=== PATIENT | female | born 1985 | race Caucasian/White ===

== ENCOUNTER → 2017-12-20 14:51 | Outpatient (CLI) | payer OTHER, SELFPAY ==
[2017-11-17 09:52] VITALS: BP 120/75
[2017-12-17 15:35] VITALS: BP 113/71; BMI 22.9
--- NOTE | 2017-12-20 14:55 | US_ITS ---
STUDY: SECOND AND THIRD TRIMESTER OBSTETRICAL ULTRASOUND REASON FOR EXAM: Female, 32 years old. Routine survey. LMP: August 09, 2017. TECHNIQUE: Transabdominal PRIOR ULTRASOUND: None. FINDINGS: There is a single intrauterine fetus. The fetus is in a breech presentation. There is demonstrated cardiac activity with a heart rate of 149 bpm. There is a normal amniotic fluid volume. The largest amniotic fluid pocket measures 4.74 cm. The placenta is posterior in location and is not low lying. The tip of the placenta is 1.3 cm from the cervix. There are Grade 0 placental changes. The cervix measures 5.2 cm in length. The adnexal regions are not visualized. BIOMETRY: BPD: 4.0 cm: 18 weeks, 2 days HC: 15.44 cm: 18 weeks, 3 days AC: 13.18 cm: 18 weeks, 5 days FL: 2.93 cm: 19 weeks, 1 days CI: 74% FL/BPD: 73% FL/HC: FL/AC: 22% HC/AC: 1.17 age by current US: 18 weeks, 5 days. SALVADOR by current US: May 18, 2018. Estimated weight: 257 grams, +/- 38 grams, 33 %. Age by LMP: 19 weeks, 0 days. SALVADOR by LMP: May 16, 2018. ANATOMY: Gender: Female Cranium: Normal lateral ventricles. Normal choroid plexus. Normal cerebellum. Normal cisterna magna. It measures 0.53 cm. Normal face, nose and lips. Chest: Normal 4-chamber heart. Abdomen/Pelvis: Normal diaphragm. Normal stomach. Normal abdominal wall. Normal cord insertion. Normal 3 vessel cord. Normal kidneys. Normal bladder. Spine: Normal cervical spine. Normal thoracic spine. Normal lumbar spine. Normal sacrum. Extremities: Normal bilateral upper extremities. Normal bilateral lower extremities. US/OB Anatomy Scan IMPRESSION: Single live intrauterine gestation with a mean gestational age of 18 weeks and 5 days. Electronically Signed: Norris Cavazos MD at 9:32 EST Tel [phone], Service support ,
== END ==
PROVIDERS: Visit Provider Nurse Practitioner Women's Health
DX: Z34.90 Encounter for supervision of normal pregnancy, unspecified, unspecified trimester (principal)
CPT/HCPCS: 76805

== ENCOUNTER → 2018-02-15 08:01 | Outpatient (CLI) | payer OTHER, SELFPAY ==
[2018-02-15 09:52] LABS: Absolute Lymphocyte Count 2.36 X10^3/ul (0.83-4.51); Absolute Neutrophil Count 8.1 X10^3/uL (2.0-7.7); Basophil# 0.02 X10^3/uL; Basophil% 0.2 % (0-1); Eosinophil# 0.09 X10^3/uL; Eosinophils% 0.8 % (0-5); Hematocrit 38.1 % (37-47); Hemoglobin 12.7 g/dl (12.0-15.0); Lymphocyte # 2.36 X10^3/ul (4.0); Lymphocyte % 20.8 % (19-41); Mean Corp Hgb Conc 33.3 g/gl (32-36); Mean Corpuscular Hgb 32.2 pg (27.0-32.0); Mean Corpuscular Volume 96.7 fL (81-99); Mean Platelet Vol. 10.2 fl (6.2-12.0); Monocyte# 0.68 X10^3/uL; Neutrophil # 8.13 X10^3/uL (2.7-7.7); Neutrophil % 71.8 % (47-70); Platelet Count 272 K/mm3 (150-450); RBC Distribution Width SD 44.9 fl (35.1-43.9); Red Blood Count 3.94 M/mm3 (4.2-5.4); White Blood Count 11.3 K/mm3 (4.4-11.0)
[2018-02-15 09:53] LABS: POSITIVE COUNT NO; POSITIVE DIFFERENTIAL NO; POSITIVE MORPHOLOGY NO
[2018-02-15 10:15] LABS: Glucose Challenge Gest 1H 50g 129 mg/dL (70-140)
== END ==
PROVIDERS: Visit Provider Obstetrics & Gynecology
DX: Z34.02 Encounter for supervision of normal first pregnancy, second trimester (principal)
CPT/HCPCS: 36415; 82950; 85025

== ENCOUNTER → 2018-02-21 14:58 | Outpatient (CLI) | payer OTHER, SELFPAY ==
--- NOTE | 2018-02-21 14:59 | US_ITS ---
STUDY: SECOND AND THIRD TRIMESTER OBSTETRICAL ULTRASOUND - LIMITED REASON FOR EXAM: Female, 32 years old. Follow-up low-lying placenta. LMP: 08/09/2017 PRIOR ULTRASOUND: 12/20/2017. TECHNIQUE: Transabdominal ultrasound evaluation was performed. FINDINGS: There is a single intrauterine fetus. The fetus is in a breech presentation. There is demonstrated cardiac activity with a heart rate of 149 bpm. There is a normal amniotic fluid volume. The largest amniotic fluid pocket measures 7.1 cm. The amniotic fluid index (DIETER) is 12.9 cm. The placenta is posterior in location and is not low lying. There are Grade 0 placental changes. The cervix measures 3.5 cm cm in length. BIOMETRY: BPD: 6.7: 27 weeks, 0 days HC: 26.3: 28 weeks, 5 days AC: 22.6: 27 weeks, 0 days FL: 5.3: 27 weeks, 6 days Age by LMP: 28 weeks, 0 days. SALVADOR by LMP: 05/16/2018. age by prior US: 27 weeks, 5 days. SALVADOR by prior US: 05/18/2018. age by current US: 27 weeks, 5 days. SALVADOR by current US: 05/18/2018. Estimated weight: 1071 grams, +/- 156 grams, 18 percentile. Gender: US/OB Limited With Biometrics IMPRESSION: Single live fetus in a breech presentation. survey not performed on this exam. Placenta is grade 0 and is not low-lying. Cervix is closed. age by prior US: 27 weeks, 5 days. SALVADOR by prior US: 05/18/2018. Estimated weight: 1071 grams, +/- 156 grams, 18 percentile. Electronically Signed: Lenny Wray MD at 23:16 EDT , Service support ,
== END ==
PROVIDERS: Visit Provider Nurse Practitioner Women's Health
DX: Z34.90 Encounter for supervision of normal pregnancy, unspecified, unspecified trimester (principal); O44.42 Low lying placenta NOS or without hemorrhage, second trimester; Z3A.00 Weeks of gestation of pregnancy not specified
CPT/HCPCS: 76816

== ENCOUNTER → 2018-04-19 16:00 | Outpatient (CLI) | payer OTHER, SELFPAY ==
--- NOTE | 2018-04-19 16:00 | DT_ITS ---
This patient was seen during an EMR downtime April 18, 2018 - April 25, 2018. This patient may have a combination of paper and electronic documentation or all paper documentation. All documentation is viewable within the e-chart portion of [employer] for each patient visit.
[2018-04-24 10:02] LABS: Group B Strep DNA By PCR Negative (Negative); Internal Control PASS; Probe Check PASS; Specimen Processing Control PASS
== END ==
PROVIDERS: Visit Provider Obstetrics & Gynecology
DX: Z34.90 Encounter for supervision of normal pregnancy, unspecified, unspecified trimester (principal)
CPT/HCPCS: 87081; 87653

== ENCOUNTER → 2018-05-23 10:28 | Outpatient (CLI) | payer OTHER, SELFPAY ==
--- NOTE | 2018-05-23 10:30 | US_ITS ---
STUDY: SECOND AND THIRD TRIMESTER OBSTETRICAL ULTRASOUND - LIMITED REASON FOR EXAM: Female, 32 years old. Follow-up anatomy. LMP: August 09, 2017. PRIOR ULTRASOUND: Comparison is made with prior study dated February 21, 2018. TECHNIQUE: Transabdominal ultrasound evaluation was performed. FINDINGS: There is a single intrauterine fetus. The fetus is in a cephalic presentation. There is demonstrated cardiac activity with a heart rate of 160 bpm. There is a normal amniotic fluid volume. The largest amniotic fluid pocket measures 3.5 sinus by 3.1 cm. The amniotic fluid index (DIETER) is 5.5 cm. The placenta is fundal in location. There are Grade 3 placental changes. The cervix is not well seen due to the head. BIOMETRY: BPD: 9.08 cm: 36 weeks, 6 days HC: 35.12 cm: 41 weeks, 0 days AC: 36.92 cm: 40 weeks, 6 days FL: 7.14 cm: 39 weeks, 5 days Age by LMP: 41 weeks, 0 days. SALVADOR by LMP: May 16, 2018. age by prior US: 40 weeks, 5 days. SALVADOR by prior US: May 18, 2018. age by current US: 39 weeks, 5 days. SALVADOR by current US: May 25, 2018. Estimated weight: 3963 grams, +/- 579 grams, percentile no growth percentile over 40 weeks gestation.. US/OB Limited With Biometrics IMPRESSION: Single live intrauterine gestation with a mean gestational age of 40 weeks and 5 days. The measurements obtained today fall within the normal expected range. Electronically Signed: Norris Cavazos MD at 14:06 EDT Tel [phone], Service support ,
== END ==
PROVIDERS: Visit Provider Obstetrics & Gynecology
DX: Z34.90 Encounter for supervision of normal pregnancy, unspecified, unspecified trimester (principal)
CPT/HCPCS: 76816

== ENCOUNTER 2018-05-24 19:00 | Inpatient (IN) | payer OTHER, SELFPAY ==
[2018-05-24 19:11] VITALS: BMI 27.2
[2018-05-24] MEDS: Lactated Ringers 1,000 ML 50 ML IV (19:50)
[2018-05-24 20:19] LABS: Hematocrit 40.5 % (37-47); Hemoglobin 13.9 g/dl (12.0-15.0); Mean Corp Hgb Conc 34.3 g/gl (32-36); Mean Corpuscular Hgb 32.3 pg (27.0-32.0); Mean Platelet Vol. 10.3 fl (6.2-12.0); Platelet Count 289 K/mm3 (150-450); RBC Distribution Width CV 13.4 % (11.6-14.6); RBC Distribution Width SD 44.5 fl (35.1-43.9); Red Blood Count 4.31 M/mm3 (4.2-5.4); White Blood Count 14.4 K/mm3 (4.4-11.0)
[2018-05-24] MEDS: miSOPROStol 25 MCG TABLET VAGINAL (20:20)
[2018-05-24 20:24] LABS: Scan Indicated on CBC? Y/N NO
--- NOTE | 2018-05-24 21:02 | HP.PCM_ITS ---
- Problem List (1) Post-dates Status: Acute (2) Supervision of normal Status: Acute Qualifiers: Comment: PRR SALVADOR: 05/16/18; girl spouse Virgen; History Date of Admission: 05/24/18 Final SALVADOR: 05/16/18 Gestational age: 41 Weeks and 1 Days History of this : This is a 32 year-old, at 41 weeks gestational age presents for IOL secondary to postdates. she has had an uncomplicated pregnacy with no issues. she denies any vaginal bleeding, lof, and admits good fm Allergies codeine Allergy (Mild, Verified 05/24/18 19:33) Unknown milk thistle (Silybum marianum) Allergy (Mild, Verified 05/24/18 19:33) Unknown Home Medications: Home Medications vitamin,calcium,vrcnaknh-buxw-absjv acid tablet 1 tab PO QDAY 11/17/17 Azelaic Acid [Finacea] 50 gm TP DAILY 05/24/18 Smoking Status: Never smoker Alcohol: None Number of Fetus(es): 1 Heart Tracin moderate variability reactive no decels cat I tracing TOCO Analysis: irregular History Past Pregnancies: Past Pregnancies Delivery Date Name GA/Weeks Outcome Route Weight Gender Labor Length Anesthesia Delivery Location Provider FOB Labs: Mom's Labs & Results 05/24/18 05/24/18 19:50 19:50 WBC 14.4 H RBC 4.31 Hgb 13.9 Hct 40.5 MCV 94.0 MCH 32.3 H MCHC 34.3 RDW 13.4 RDW Differential 44.5 H Plt Count 289 MPV 10.3 Blood Type Pending Antibody Screen Pending Course Did the patient receive Yes care? Labs RPR/VDRL/Syphilis Nonreactive Rubella status Immune HbSAg Negative Date Done: 12/03/17 Chlamydia Negative Gonorrhea Negative HIV/AIDS Non-Reactive Group B Strep: Negative Current Obstetrical History Gestational Diabetes No Incompetent Cervix No Infertility No IUGR No Macrosomia No Hypertension/Pre-eclampsia No Placenta Previa/Abruption No PTL/PROM No Uterine anomaly No Oligohydramnios No Polyhydramnios No Multiple gestation No Past Medical History Asthma No Diabetes No Hypertension No Heart disease No Mitral valve prolapse No Neurologic/Seizure disorder/ No Migraines Kidney disease No Liver disease No Varicosities No Clotting disorders/Hx of DVT No Thyroid Dysfunction No Other medical diseases No Psychiatric disorders No Major trauma No Abnormal PAP smear Yes: 2010 Sleep apnea No Mammogram in the last 2 years No Social History Marital Status: Alleged father virgen Hx Smoking No Smoking Status Never smoker Expected Infant Delivery Method: Spontaneous Vaginal Review of Systems Constitutional: Denies: Fever, Malaise Eyes: Denies: Blurred vision, Vision Change HEENT: Denies: Head Aches, Visual Changes Cardiovascular: Denies: Chest Pain, Palpitations Respiratory: Denies: Cough, Shortness of Breath, Wheezing Gastrointestinal: Denies: Abdominal Pain, Diarrhea, Nausea, Vomiting Genitourinary: Denies: Dysuria, Hematuria Musculoskeletal: Denies: Joint Pain, Muscle pain Skin: Denies: Lesions, Rash Neurological: Denies: Blurred vision, Focal weakness, Headaches Psychiatric: Denies: Anxiety, Depression Endocrine: Denies: Heat/ Cold Intolerance Hematologic/ Lymphatic: Denies: Easy Bruising, Easy Bleeding Physical Exam General: Alert, Cooperative, No apparent distress HEENT: Atraumatic, Normocephalic. Negative for: Thyromegaly, Lymphadenopathy Cardiovascular: Regular rate Lungs: Normal air movement Abdomen: Soft, Non Tender, Gravid Neurological: Deep Tendon Reflexes 2+/4 and Symmetrical, Neuro grossly intact. Negative for: Clonus SUPERVISOR EDUCATION: Normal external genitalia. Negative for: Vulvar lesions Estimated gestational size: Appropriate for gestational size Presentation: Cephalic Assessment/Plan All Active Problems (Last Reviewed 05/23/18 @ 11:16 by Bonita Rasmussen) Post-dates (Acute) Supervision of normal (Acute) Low lying placenta, antepartum (Resolved) This is a 32 year-old, at 41 weeks gestational age IOL postdates cytotec then pitocin, epi PRN, gbs neg
[2018-05-25] MEDS: miSOPROStol 25 MCG TABLET VAGINAL ×2 (00:22→05:30)
[2018-05-25] MEDS: Acetaminophen 325 MG Tablet PO (04:51)
[2018-05-25] MEDS: 0.9% Saline Lock 10 ML Syringe IV ×2 (07:19→16:38)
--- NOTE | 2018-05-25 07:48 | PCM.PN.BLA ---
Progress Note s/p cytotec x 3. regular ctx. no cervical change yet. c ategory I tracing. continue cytotec until 3 cm
[2018-05-25] MEDS: fentaNYL-bupivacaine (epidural) 100 ML BAG EPIDURAL (15:13)
[2018-05-25] MEDS: Lactated Ringers 1,000 ML 50 ML IV ×2 (17:08→22:24)
--- NOTE | 2018-05-25 19:59 | PCM.PN.BLA ---
Progress Note doing well making progress to 6-7 cm. comfortable with epidural cat I tracing. pit at 10 cm
[2018-05-26] MEDS: Oxytocin 30 units/NS 500 ml 30 UNITS/500 ML IV.SOLN 334 UNITS IV (02:20)
--- NOTE | 2018-05-26 02:44 | PCM.OB.VAG ---
- Problem List (1) Post-dates Status: Acute (2) Supervision of normal Status: Acute Qualifiers: Comment: PRR SALVADOR: 05/16/18; girl spouse Gerry; (3) Late deceleration of heart rate Status: Acute (4) Variable heart rate decelerations, delivered Status: Acute Vaginal Delivery Maternal Presentation: Medically Indicated Induction 32-year-old at 41 and 1 presented for induction of labor secondary to postdates Method of Induction: Pitocin, Amniotomy, Cytotec Amniotic Membrane Rupture Type: Artificial Amniotic Fluid Description: Clear Final SALVADOR: 05/16/18 Gestational age: 41 Weeks and 3 Days Date of Procedure: 05/26/18 Surgery/ Procedure Performed: Vacuum Assisted Vaginal Delivery Type of Anesthesia: Epidural Description of Procedure: Patient pushed for over 2 hours and the had was at the +3 station and pelvis felt to be adequate patient developed recurrent late decelerations with pushing after having had variables and had minimal to moderate variability positive scalp stem, the decision was made to expedite the second stage of labor and therefore a vacuum was applied is difficult to maintain suction due to the capit. Medial lateral episiotomy was cut to shorten pushing. Vacuum was applied for a total of 5 minutes with pulls with 3 contractions with 3 pop offs and therefore the vacuum was abandoned. The head was at a +4-+5 station and the heart rate tracing showed moderate variability with resolution of late decelerations and therefore patient continued pushing. Pushed for an additional 15 minutes in the head was delivered atraumatically followed by the anterior and posterior shoulders with a loose nuchal cord ?1 easily reduced over the 's head. The was in the ABHIJIT presentation however the shoulders rotated and the right shoulder delivered first followed by the left which actually spontaneously rotated to anterior with pushing and the rest the infant delivered. Terminal meconium was noted and decreased tone therefore advanced manufacturing technician was called. Apgars were 7 and 8. Cord gases were sent and there is no extension of the right mediolateral episiotomy which was repaired in the usual fashion with 3-0 Vicryl repeat. It was to the level of a second-degree perineal laceration. EBL was 4 50 cc. Patient and tolerated the delivery well. Presentation: ABHIJIT Placental Delivery Description: Spontaneous Placenta Disposition: [facility] Cord Vessel Description: 3 Vessels Cord Entanglement: None Drain: Szymanski to straight drain Estimated Blood Loss: 450 Infant A gender: Female (1 minute): 7 (5 minute): 8 Episiotomy Description: Right Mediolateral, Perineal Extension/lac, 2nd degree Medications given after delivery: IV Pitocin Complications: None
[2018-05-26] MEDS: Oxytocin 30 units/NS 500 ml 30 UNITS/500 ML IV.SOLN 167 UNITS IV (02:50)
--- NOTE | 2018-05-26 02:52 | OP.PCM_ITS ---
- Problem List (1) Post-dates Status: Acute (2) Supervision of normal Status: Acute Qualifiers: Comment: PRR SALVADOR: 05/16/18; girl spouse Gerry; (3) Late deceleration of heart rate Status: Acute (4) Variable heart rate decelerations, delivered Status: Acute Vaginal Delivery Maternal Presentation: Medically Indicated Induction 32-year-old at 41 and 1 presented for induction of labor secondary to postdates Method of Induction: Pitocin, Amniotomy, Cytotec Amniotic Membrane Rupture Type: Artificial Amniotic Fluid Description: Clear Final SALVADOR: 05/16/18 Gestational age: 41 Weeks and 3 Days Date of Procedure: 05/26/18 Surgery/ Procedure Performed: Vacuum Assisted Vaginal Delivery Type of Anesthesia: Epidural Description of Procedure: Patient pushed for over 2 hours and the had was at the +3 station and pelvis felt to be adequate patient developed recurrent late decelerations with pushing after having had variables and had minimal to moderate variability positive scalp stem, the decision was made to expedite the second stage of labor and therefore a vacuum was applied is difficult to maintain suction due to the capit. Medial lateral episiotomy was cut to shorten pushing. Vacuum was applied for a total of 5 minutes with pulls with 3 contractions with 3 pop offs and therefore the vacuum was abandoned. The head was at a +4-+ 5 station and the heart rate tracing showed moderate variability with resolution of late decelerations and therefore patient continued pushing. Pushed for an additional 15 minutes in the head was delivered atraumatically followed by the anterior and posterior shoulders with a loose nuchal cord ?1 easily reduced over the 's head. The was in the ABHIJIT presentation however the shoulders rotated and the right shoulder delivered first followed by the left which actually spontaneously rotated to anterior with pushing and the rest the delivered. Terminal meconium was noted and decreased tone therefore pulmonologist intensivist was called. Apgars were 7 and 8. Cord gases were sent and there is no extension of the right mediolateral episiotomy which was repaired in the usual fashion with 3-0 Vicryl repeat. It was to the level of a second-degree perineal laceration. EBL was 4 50 cc. Patient and tolerated the delivery well. Presentation: ABHIJIT Placental Delivery Description: Spontaneous Placenta Disposition: [facility] Cord Vessel Description: 3 Vessels Cord Entanglement: None Drain: Szymanski to straight drain Estimated Blood Loss: 450 A gender: Female (1 minute): 7 (5 minute): 8 Episiotomy Description: Right Mediolateral, Perineal Extension/lac, 2nd degree Medications given after delivery: IV Pitocin Complications: None
[2018-05-26] MEDS: Naproxen 250 MG Tablet PO ×2 (07:59→15:25)
[2018-05-26 08:00] VITALS: BP 105/60; PULSE 103; RESP 18; TEMP 37.7
[2018-05-26] MEDS: Dibucaine 30 GM Tube 1 APPLIC TOPICAL (08:01)
[2018-05-26] MEDS: Acetaminophen 500 MG Tablet 1000 MG PO (09:06)
[2018-05-26] MEDS: oxyCODONE 5 MG Tablet PO ×3 (09:06→15:24)
[2018-05-26] MEDS: Prenatal Vits Tablet 1 TABLET PO (11:04)
[2018-05-26 12:00] VITALS: BP 99/70; PULSE 98; RESP 18; TEMP 36.8
[2018-05-26 16:00] VITALS: BP 126/71; PULSE 103; RESP 18; TEMP 37.1
--- NOTE | 2018-05-26 16:05 | PCM.DCVAG ---
Additional Instructions: If you experience any of the following, contact your healthcare provider. Bleeding that soaks a pad every hour for 2 hours Fever 100.4 or higher Unrelieved incision or abdominal pain Swelling, redness, discharge or bleeding from your incision or episiotomy site Your incision begins to separate Problems urinating (including inability to urinate or burning while urinating). Visual changes Severe headache Flu-like symptoms Pain or redness in one of both of your breasts Pain, warmth, tenderness or swelling in your legs, especially the calf area Frequent nausea and vomiting Symptoms of depression or anxiety If you experience any of the following, call 911 or go to the nearest Emergency Room. Chest pain Problems breathing Seizure activity Partial or complete paralysis of a body part, slurred speech, weakness or drooping of the face, or a sudden inability to walk or hold your balance Allergies/Adverse Reactions: Allergies codeine Allergy (Mild, Verified 05/24/18 19:33) Unknown milk thistle (Silybum marianum) Allergy (Mild, Verified 05/24/18 19:33) Unknown Medications to take at Discharge vitamin,calcium,mpomipus-bzlb-hiflt acid tablet 1 tab PO QDAY 11/17/17 Azelaic Acid [Finacea] 50 gm TP DAILY 05/24/18 Naproxen 500 mg PO Q8H PRN PRN #60 tab 05/26/18 Oxycodone HCl/Acetaminophen [Percocet 5/325] 1 - 2 tab PO Q4H PRN PRN 4 Days #20 tab 05/26/18 The following prescriptions were given: Oxycodone HCl/Acetaminophen [Percocet 5/325] 1 - 2 tab PO Q4H PRN PRN 4 Days #20 tab PRN Reason: Pain Naproxen 500 mg PO Q8H PRN PRN #60 tab PRN Reason: Pain Primary Care Physician: Care Physician,No Primary [Primary Care Provider] - Test Results: Test results from this visit will be discussed in further detail at your follow-up appointment, if applicable.
--- NOTE | 2018-05-26 16:06 | DCINST_ITS ---
Additional Instructions: If you experience any of the following, contact your healthcare provider. * Bleeding that soaks a pad every hour for 2 hours * Fever 100.4 or higher * Unrelieved incision or abdominal pain * Swelling, redness, discharge or bleeding from your incision or episiotomy site * Your incision begins to separate * Problems urinating (including inability to urinate or burning while urinating) . * Visual changes * Severe headache * Flu-like symptoms * Pain or redness in one of both of your breasts * Pain, warmth, tenderness or swelling in your legs, especially the calf area * Frequent nausea and vomiting * Symptoms of depression or anxiety If you experience any of the following, call 911 or go to the nearest Emergency Room. * Chest pain * Problems breathing * Seizure activity * Partial or complete paralysis of a body part, slurred speech, weakness or drooping of the face, or a sudden inability to walk or hold your balance Allergies/Adverse Reactions: Allergies codeine Allergy (Mild, Verified 05/24/18 19:33) Unknown milk thistle (Silybum marianum) Allergy (Mild, Verified 05/24/18 19:33) Unknown Medications to take at Discharge vitamin,calcium,yltcffkj-vkcg-gfdmm acid tablet 1 tab PO QDAY 11/17/17 Azelaic Acid [Finacea] 50 gm TP DAILY 05/24/18 Naproxen 500 mg PO Q8H PRN PRN #60 tab 05/26/18 Oxycodone HCl/Acetaminophen [Percocet 5/325] 1 - 2 tab PO Q4H PRN PRN 4 Days # 20 tab 05/26/18 The following prescriptions were given: Oxycodone HCl/Acetaminophen [Percocet 5/325] 1 - 2 tab PO Q4H PRN PRN 4 Days # 20 tab PRN Reason: Pain Naproxen 500 mg PO Q8H PRN PRN #60 tab PRN Reason: Pain Primary Care Physician: Care Physician,No Primary [Primary Care Provider] - Test Results: Test results from this visit will be discussed in further detail at your follow- up appointment, if applicable.
--- NOTE | 2018-05-26 17:08 | PCM.PN.OB ---
Patient Problems: Active and Suspected Problems (Last Reviewed 05/23/18 @ 11:16 by Bonita Rasmussen) Post-dates (Acute) Late deceleration of heart rate (Acute) Variable heart rate decelerations, delivered (Acute) Subjective: patient seen pain controlled with oral meds no C PSOB N V tolerating po - Physical Exam General: Alert, Oriented x3 Vital Signs Temp Pulse Resp BP 98.3 F 98 18 99/70 05/26/18 12:00 05/26/18 12:00 05/26/18 12:00 05/26/18 12:00 Oxygen Delivery Method Room Air Weight: 174 lb 2 oz Body Mass Index (BMI) 27.2 Intake and Output for Last 24 Hours 05/24/18 05/25/18 05/26/18 23:59 23:59 23:59 Intake Total 2403 / 2403 Output Total 2200 / 2200 300 / 300 Balance 203 / 203 -300 / -300 Medical Necessity - Tobacco Use Smoking Status: Never smoker Assessment/Plan All Active Problems (Last Reviewed 05/23/18 @ 11:16 by Bonita Rasmussen) Post-dates (Acute) Late deceleration of heart rate (Acute) Variable heart rate decelerations, delivered (Acute) Supervision of normal (Acute) Low lying placenta, antepartum (Resolved) s/p VAVD is being transfered to [facility] for depressed skull fracture- discussed with patient and she is medically stable for discharge, plan discharge home and fu in office in 4-6 weeks
--- NOTE | 2018-05-26 17:47 | NURSING ---
1705 infant transferred pt discharged to home to be with at [facility];
--- NOTE | 2018-05-26 17:48 | NURSING ---
1530 dr nina into see pt. Given dc instructions per physician.
== END 2018-05-26 17:05 | disposition home or self-care (01) | DRG 775 ==
PROVIDERS: Admitting Provider Obstetrics & Gynecology; Visit Provider Obstetrics & Gynecology
DX: O48.0 Post-term pregnancy (principal); Z3A.41 41 weeks gestation of pregnancy; Z37.0 Single live birth; O76 Abnormality in fetal heart rate and rhythm complicating labor and delivery; O69.81X0 Labor and delivery complicated by cord around neck, without compression, not applicable or unspecified; O77.0 Labor and delivery complicated by meconium in amniotic fluid
CPT/HCPCS: 59025; 59050; 85027; 86850; 86900; 99218; J7120; A4216; G0378

== ENCOUNTER 2018-06-02 15:15 | Outpatient (CLI) | payer OTHER, SELFPAY | END 2018-06-02 16:00 | disposition home or self-care (01) | LOC: WPOUT 16:17 → WP 16:19 | PROVIDERS: Visit Provider Obstetrics & Gynecology | DX: R63.3 Feeding difficulties (principal) | CPT/HCPCS: 96152 ==

== ENCOUNTER 2018-06-09 12:10 | Outpatient (CLI) | payer OTHER, SELFPAY | END 2018-06-09 12:30 | disposition home or self-care (01) | LOC: WPOUT 12:10 → WP 12:12 | PROVIDERS: Visit Provider Pediatrics | DX: Z39.1 Encounter for care and examination of lactating mother (principal) | CPT/HCPCS: 96152 ==